=== PATIENT | female | born 1970 | race Caucasian/White ===

== ENCOUNTER 2023-07-17 08:32 | Inpatient (IN) ==
--- NOTE | 2023-07-02 14:32 | PAT Medication Instructions ---
Medication Instructions Date of Service July 02, 2023 Home Medications atorvastatin 20 mg tablet 20 mg PO HS bupropion HCl 150 mg tablet,12 hr sustained-release (Wellbutrin SR) 150 mg PO QAM cholecalciferol (vitamin D3) 50 mcg (2,000 unit) tablet (Vitamin D3) 50 mcg PO HS cyanocobalamin (vitamin B-12) 500 mcg tablet (Vitamin B-12) 500 mcg PO QAM cyclobenzaprine 10 mg tablet 10 mg PO TID PRN Muscle Spasm ferrous sulfate 325 mg (65 mg iron) tablet (Iron (ferrous sulfate)) 325 mg PO HS gabapentin 100 mg capsule (Neurontin) 200 mg PO TID leflunomide 20 mg tablet 20 mg PO HS lithium carbonate 150 mg capsule 150 mg PO QAM lithium carbonate 300 mg tablet 300 mg PO HS methylphenidate HCl 36 mg tablet,extended release 24 hr (Concerta) 36 mg PO QAM metoprolol tartrate 100 mg tablet 100 mg PO QAM omeprazole 20 mg tablet,delayed release 20 mg PO HS oxycodone-acetaminophen 5 mg-325 mg tablet (Percocet) 1 tab PO BID PRN Pain ASK your prescriber and surgeon leflunomide 20 mg tablet 20 mg PO HS DO NOT take the morning of surgery cyanocobalamin (vitamin B-12) 500 mcg tablet (Vitamin B-12) 500 mcg PO QAM cyclobenzaprine 10 mg tablet 10 mg PO TID PRN Muscle Spasm methylphenidate HCl 36 mg tablet,extended release 24 hr (Concerta) 36 mg PO QAM Take morning of surgery With a small sip of water, OTHERWISE NOTHING TO EAT OR DRINK AFTER MIDNIGHT: bupropion HCl 150 mg tablet,12 hr sustained-release (Wellbutrin SR) 150 mg PO QAM gabapentin 100 mg capsule (Neurontin) 200 mg PO TID lithium carbonate 150 mg capsule 150 mg PO QAM metoprolol tartrate 100 mg tablet 100 mg PO QAM oxycodone-acetaminophen 5 mg-325 mg tablet (Percocet) 1 tab PO BID PRN Pain (if needed) Take evening before surgery atorvastatin 20 mg tablet 20 mg PO HS cholecalciferol (vitamin D3) 50 mcg (2,000 unit) tablet (Vitamin D3) 50 mcg PO HS cyclobenzaprine 10 mg tablet 10 mg PO TID PRN Muscle Spasm (if needed) ferrous sulfate 325 mg (65 mg iron) tablet (Iron (ferrous sulfate)) 325 mg PO HS gabapentin 100 mg capsule (Neurontin) 200 mg PO TID leflunomide 20 mg tablet 20 mg PO HS lithium carbonate 300 mg tablet 300 mg PO HS omeprazole 20 mg tablet,delayed release 20 mg PO HS oxycodone-acetaminophen 5 mg-325 mg tablet (Percocet) 1 tab PO BID PRN Pain (if needed) Other Notes If you have any questions please call us at [phone] or [phone] or [phone] or [phone]
--- NOTE | 2023-07-08 09:44 | Anesthesiology Consultation ---
Date of Service July 08, 2023 Assessment & Plan (1) Encounter for pre-operative examination: - Check test AM DOS - Infectious disease screening: Per assessment on 07/08: No known infectious disease contacts or current infectious disease symptoms. Chart Review Chart Review: Acceptable Risk for Surgery and Patient NOT seen in Pre Admission Testing History Surgery Operation Date: 07/17/23 07:45 Proposed Procedures p L2-L4 Decompression, L2-S1 Fusion, L4-S1 Hardware Removal, Spinal Cord Monitoring - Pacheco Sutherland, Height/Weight Height: 5 ft 7 in Weight: 84.4 kg Allergies Allergy/AdvReac Type Severity Reaction Status Date / Time No Known Allergies Allergy Verified 07/02/23 13:37 Medications Home Medications Medication Instructions Recorded Confirmed Last Taken atorvastatin 20 mg tablet 20 mg PO HS 07/02/23 07/02/23 Unknown bupropion HCl 150 mg tablet,12 hr 150 mg PO QAM 07/02/23 07/02/23 Unknown sustained-release (Wellbutrin SR) cholecalciferol (vitamin D3) 50 50 mcg PO HS 07/02/23 07/02/23 Unknown mcg (2,000 unit) tablet (Vitamin D3) cyanocobalamin (vitamin B-12) 500 500 mcg PO QAM 07/02/23 07/02/23 Unknown mcg tablet (Vitamin B-12) cyclobenzaprine 10 mg tablet 10 mg PO TID PRN Muscle Spasm 07/02/23 07/02/23 Unknown ferrous sulfate 325 mg (65 mg 325 mg PO HS 07/02/23 07/02/23 Unknown iron) tablet (Iron (ferrous sulfate)) gabapentin 100 mg capsule 200 mg PO TID 07/02/23 07/02/23 Unknown (Neurontin) leflunomide 20 mg tablet 20 mg PO HS 07/02/23 07/02/23 Unknown lithium carbonate 150 mg capsule 150 mg PO QAM 07/02/23 07/02/23 Unknown lithium carbonate 300 mg tablet 300 mg PO HS 07/02/23 07/02/23 Unknown methylphenidate HCl 36 mg 36 mg PO QAM 07/02/23 07/02/23 Unknown tablet,extended release 24 hr (Concerta) metoprolol tartrate 100 mg tablet 100 mg PO QAM 07/02/23 07/02/23 Unknown omeprazole 20 mg tablet,delayed 20 mg PO HS 07/02/23 07/02/23 Unknown release oxycodone-acetaminophen 5 mg-325 1 tab PO BID PRN Pain 07/02/23 07/02/23 Unknown mg tablet (Percocet) Past Medical History Medical History Bipolar disorder GERD (gastroesophageal reflux disease) History of anemia Hx of blood transfusions (most recent 5+ years ago), improved with iron supplementation History of COVID-19 2020- bradycardia, SOB, flu-like symptoms- evaluated in the ER/no hospitalization, states had endocarditis caused by Covid; "resolved" History of endocarditis After having Covid 2019, "resolved" History of kidney stones Hyperlipidemia Migraine Reason for metoprolol per patient Rheumatoid arthritis Exercise / Class Metabolic Activity III < 4 Walking/Shop/Light housework (one FS (no CP, + occasional SOB)) Past Family History Family History Other No family history of adverse response to anesthesia Past Surgical History Surgical History History of ankle surgery History of bilateral carpal tunnel release History of bilateral hip replacements 2021 History of esophageal dilatation History of lumbar fusion Hx of cholecystectomy Hx of cystoscopy Hx of gastric bypass Hx of hand surgery nodules removed from tendons Hx of unilateral oophorectomy right Past Anesthesia History No Hx of Anesthesia Complications Mother- slow to wake, PONV, "sensitive to meds" History of PONV History of PONV (+ postop nausea) Social History Smoking Status: Never smoker Do You Dip or Chew Tobacco: No Hx Alcohol Use: Yes alcohol intake frequency: holidays/special occasions only Hx Substance Use: No substance use type: does not use Review of Systems Patient denies chest pain, shortness of breath, fever, chills, cough, wheezing, palpitations. Physical Exam Vital Signs VITALS BP 137/85 P 70 TEMP 99.0 SP02 96%RA RESP 16 PHYSICAL Full cervical extension range of motion. Full TMJ range of motion. TMD 4 finger breaths Mallampati Score 1 Dentition: missing side, + upper front crowns, + caps Lungs: clear throughout to auscultation Cardiac: regular rate and rhythm, no murmurs noted Spine: normal Carotid arteries: negative bruit Extremities: no LE edema Lab Results Anesthesia Preop Results Results Anesthesia Widget: WBC 5.65 K/ul (4.8-10.8) 07/08/23 Hgb 13.7 g/dl (12.0-16.0) 07/08/23 Hct 40.6 % (37.0-47.0) 07/08/23 Plt 206 K/uL (130-400) 07/08/23 Na 140 mmol/L (136-145) 07/08/23 K 4.3 mmol/L (3.5-5.1) 07/08/23 Cl 110 mmol/L (98-107) H 07/08/23 CO2 25 mmol/L (21-32) 07/08/23 BUN 16 mg/dl (6-23) 07/08/23 Creat 0.91 mg/dl (0.6-1.2) 07/08/23 Glucose Level 82 mg/dl (70-99(Fasting)) 07/08/23 PT 10.7 Seconds (9.0-12.0) 07/08/23 PTT 25.9 Seconds (21.0-31.0) 07/08/23 INR 1.0 (0.9-1.1) 07/08/23 Urine Color Dark Yellow 07/08/23 Urine Appearance Clear (Clear) 07/08/23 Urine pH 5.5 (4.5-7.5) 07/08/23 Urine Specific [place] 1.025 (1.000-1.030) 07/08/23 Urine Protein Negative (Negative) 07/08/23 Urine Glucose (UA) Negative (Negative) 07/08/23 Urine Ketones Trace (Negative) H 07/08/23 Urine Blood Negative (Negative) 07/08/23 Urine Nitrite Negative (Negative) 07/08/23 Urine Bilirubin Negative (Negative) 07/08/23 Urine Urobilinogen Negative (Negative) 07/08/23 Urine Leukocyte Esterase Trace (Negative) H 07/08/23 Urine WBC (Auto) 1-5 /hpf (0-5) 07/08/23 Urine RBC (Auto) 0-4 /hpf (0-4) 07/08/23 Urine Hyaline Casts (Auto) 1-5 /lpf (0-5) 07/08/23 Urine Epithelial Cells (Auto) >30 /lpf (0-5) H 07/08/23 Urine Bacteria (Auto) Negative (Negative) 07/08/23 Blood Type AB Negative 07/08/23 Antibody Screen NEGATIVE 07/08/23 Testing Electrocardiogram Date: 07/08/23 NSR at 65bpm. Chest X-Ray Date: 07/08/23 FINDINGS: No lines and tubes are seen. The cardiomediastinal silhouette is normal. The lungs are clear. No evidence of pleural effusion or pneumothorax. IMPRESSION: No acute abnormalities and in particular no radiographic evidence of pneumonia. Cervical Spine Date: 07/08/23 FINDINGS: Lateral views of the cervical spine in neutral, flexion, and extension positions are obtained. No prior studies are available for comparison at the time of dictation. The skeletal structures are osteopenic. There is no radiographic evidence of fracture or subluxation on these lateral views. Vertebral body height and alignment are maintained. The atlantodens articulation is maintained noting productive degenerative change. There is no bony subluxation on the flexion/extension views. The spinolaminar line is intact. The spinous processes are maintained. Anterior osteophytes are seen throughout. There is moderate disc space narrowing at C5-C6 with associated endplate sclerosis. The remaining disc spaces are preserved. The prevertebral soft tissues are normal as imaged. IMPRESSION: No acute bony abnormality is seen involving the cervical spine on these lateral views. There is no bony subluxation seen on the flexion/extension views. Spondylotic change as above.
[~2023-07-17 08:32] MED LIST: ACETAMINOPHEN 500 MG TAB PO SCH; CeleBREX 200 MG CAP PO SCH; DEXAMETHASONE SOD INJ 4 MG/ML VIAL ONE; GABAPENTIN 900 MG DOSE PO SCH; KETAMINE 50 MG/5 ML SYRINGE ONE; LIDOCAINE 2% 2 ML VIAL/AMP(20MG/ML) INFIL ONE; LR 15ML/HR IV SCH; LR 60ML/HR IV SCH; MIDAZOLAM HCL 1 MG/ML 2ML VIAL ONE; ONDANSETRON INJ 2 MG/ML 2 ML VIAL ONE; PROPOFOL IV EMULSION 10 MG/ML 20 ML VIAL IV ONE; ROCURONIUM BROMIDE 10 MG/ML 5 ML VIAL IV ONE; SUGAMMADEX SODIUM 200 MG/2 ML VIAL IV ONE; ceFAZolin 2000MG 2,000 MG/15 ML SYR IV SCH; fentaNYL citrate PF 100 MCG/2 ML VIAL ONE
[2023-07-17] MEDS ORDERED: SCOPOLAMINE 1 MG TDSY TD ONE ×2 (10:01→10:03)
[2023-07-17] MEDS ORDERED: ePHEDrine sulfate 50 MG/ML AMP IV PRN (10:03)
[2023-07-17] MEDS ORDERED: ONDANSETRON INJ 2 MG/ML 2 ML VIAL IV PRN ×2 (10:03→14:30)
[2023-07-17] MEDS ORDERED: ATROPINE SULFATE 0.1 MG/ML 10ML SYR IV PRN (10:03)
--- NOTE | 2023-07-17 10:04 | History & Physical Bridge Note ---
Date of Service July 17, 2023 History & Physical Bridge Note I have examined the patient, reviewed the History & Physical and in the interval since the performance of the History & Physical I have noted the following changes of clinical significance: no changes noted
--- NOTE | 2023-07-17 10:05 | History & Physical Report ---
Date of Service July 17, 2023 Assessment & Plan (1) Neurogenic claudication due to lumbar spinal stenosis: Plan: L2-L4 decompression, L2-S1 fusion, L4-S1 hardware removal History of Present Illness Chief Complaint: Back and leg pain Primary Care Provider: Bruna Worley MD This is a 53-year-old female presents with chronic persistent back and leg pain after failing course of nonoperative care she is here for surgical invention. Allergies Allergy/AdvReac Type Severity Reaction Status Date / Time No Known Allergies Allergy Verified 07/17/23 09:13 Home Medications Medication Instructions Recorded Confirmed Type atorvastatin 20 mg tablet 20 mg PO HS 07/02/23 07/17/23 History bupropion HCl 150 mg tablet,12 hr 150 mg PO QAM 07/02/23 07/17/23 History sustained-release (Wellbutrin SR) cholecalciferol (vitamin D3) 50 50 mcg PO HS 07/02/23 07/17/23 History mcg (2,000 unit) tablet (Vitamin D3) cyanocobalamin (vitamin B-12) 500 500 mcg PO QAM 07/02/23 07/17/23 History mcg tablet (Vitamin B-12) cyclobenzaprine 10 mg tablet 10 mg PO TID PRN Muscle Spasm 07/02/23 07/17/23 History ferrous sulfate 325 mg (65 mg 325 mg PO HS 07/02/23 07/17/23 History iron) tablet (Iron (ferrous sulfate)) gabapentin 100 mg capsule 200 mg PO TID 07/02/23 07/17/23 History (Neurontin) leflunomide 20 mg tablet 20 mg PO HS 07/02/23 07/17/23 History lithium carbonate 150 mg capsule 150 mg PO QAM 07/02/23 07/17/23 History lithium carbonate 300 mg tablet 300 mg PO HS 07/02/23 07/17/23 History methylphenidate HCl 36 mg 36 mg PO QAM 07/02/23 07/17/23 History tablet,extended release 24 hr (Concerta) metoprolol tartrate 100 mg tablet 100 mg PO QAM 07/02/23 07/17/23 History omeprazole 20 mg tablet,delayed 20 mg PO HS 07/02/23 07/17/23 History release oxycodone-acetaminophen 5 mg-325 1 tab PO BID PRN Pain 07/02/23 07/17/23 History mg tablet (Percocet) Past Med/Surg History Medical History Bipolar disorder GERD (gastroesophageal reflux disease) History of anemia Hx of blood transfusions (most recent 5+ years ago), improved with iron supplementation History of COVID-2020- bradycardia, SOB, flu-like symptoms- evaluated in the ER/no hospitalization, states had endocarditis caused by Covid; "resolved" History of endocarditis After having Covid 2019, "resolved" History of kidney stones Hyperlipidemia Migraine Reason for metoprolol per patient Rheumatoid arthritis Surgical History History of ankle surgery History of bilateral carpal tunnel release History of bilateral hip replacements 2021 History of esophageal dilatation History of lumbar fusion Hx of cholecystectomy Hx of cystoscopy Hx of gastric bypass Hx of hand surgery nodules removed from tendons Hx of unilateral oophorectomy right Family History Other No family history of adverse response to anesthesia Social History Smoking Status: Never smoker Second Hand Exposure: No; Do You Dip or Chew Tobacco: No; Tobacco Cessation Education Requested by Patient: No Hx Alcohol Use: Yes Hx Substance Use: No Preferred Language: Hungarian Communication Ability: Effective Hospital Attendant Required: No Beliefs That Will Affect Care: None Current Living Situation: Family Current Living Situation Comment: 12 yr old daughter Other Information That Helps Us Care for You: No Feels Safe at Home: Yes Safety Concerns: Feels Safe At This Time Assistive Devices: Glasses Physical Exam Physical Exam: Patient is alert and oriented Heart regular rhythm Lungs clear Results & Data Results & Data Vital Signs (Past 12 Hours) Vital Signs Temp Pulse Resp BP Pulse Ox O2 Del Method 07/17/23 09:17 36.9 C 85 16 175/103 H 94 Room Air
[2023-07-17] MEDS ORDERED: BUPIVACAINE/EPINEPHRINE 0.25% 1:200,000 30 ML VIAL ONE (10:30)
[2023-07-17] MEDS ORDERED: ceFAZolin 330 MG/ML 1 GM VIAL ONE (10:30)
[2023-07-17] MEDS ORDERED: ROCURONIUM BROMIDE 10 MG/ML 5 ML VIAL IV ONE ×4 (11:06)
[2023-07-17] MEDS ORDERED: fentaNYL citrate PF 100 MCG/2 ML VIAL ONE (11:17)
[2023-07-17] MEDS ORDERED: PHENYLEPHRINE 100MCG/ML 5ML SYR ONE (11:26)
[2023-07-17] MEDS ORDERED: ePHEDrine sulfate 50 MG/5 ML SYR ONE (11:26)
[2023-07-17] MEDS ORDERED: FLOSEAL HEMOSTATIC MATRIX 10ML TOP ONE (11:43)
--- NOTE | 2023-07-17 12:45 | Operative Report ---
Post Operative Report Pre & Post Diagnosis Operation Date: 07/17/23 10:15 Pre-Op Diagnosis: Neurogenic claudication due to lumbar spinal stenosis Post-Op Diagnosis: Neurogenic claudication due to lumbar spinal stenosis I identified the patient and participated in the time-out.: Yes Procedure Operation Date: 07/17/23 10:15 Actual Procedures #1 removal of posterior instrumentation L4-S1. #2 exploration of fusion L4-S1. #3 lumbar decompression bilaterally with facetectomies and foraminotomies L2-L3 L3-4 . #4 posterior spinal fusion L2-L3 L3-L4. #5 placed posterior instrumentation L2-S1. #6 interbody fusion L2-L3 L3-L4. #7 placement spiral of left by 26 mm at L2-L3 and 13 x 26 mm and L3-L4. #8 placement locally harvested morselized autograft and posterior gutters. #9 placement of I factor in the interbody space and infuse collagen sponge, mass graft in the posterior lateral gutters. Surgeon Pacheco Sutherland DO Chief Underwriter Elina Resendiz Estimated Blood Loss 150 Findings Consistent with Post-Op Diagnosis Specimens None Indications This is a 53-year-old female who presents above-mentioned diagnosis after failing course of nonoperative care is here for surgical invention. Description of Procedure Patient met with identified informed consent obtained. Patient was then taken to the operative suite underwent patient placed in a prone position on the Evangelist abdominals and frame. A bony promises well-padded I suspected to ensure no external pressure responded. This point the lumbar spine was prepped and draped in sterile fashion. Sharp dissection with the assistance of Bovie cautery form down to exposing the lamina and transverse processes of L2-4 including instrumentation L4 to the sacrum bilaterally. Then proceeded to move the hardware bilaterally explored the fusion mass noted and maternal tach. And then performed a complete laminectomy of L3 and L2 including bilateral medial facetectomies and foraminotomies addressing severe spinal stenosis. Pedicle screws were then placed in L2-L3-L4 and S1 levels bilaterally with assistance of fluoroscopy and the properly sized oliver placed. Believe transfer and proximal right complete discectomy L3-4 was performed endplates guarded to subcortical mean bone in the 13 x 26 mm prior cage with I factor tapped in position. Then proceeded L2-L3 and again by way of transfer approach right complete discectomy performed endplates guarded to subcortical bone and 11 x 26 mm prior cage with I factor tapped position. The rods were then locked femoral position bilaterally. The transverse processes of L2-L3-L4 burred to subcortical bleeding bone. Infuse collagen sponge, mass graft locally harvested morselized was placed in the posterior gutters. 15 round JESIKA inserted. The incision was then closed with 1 Fascia 2-0 Vicryl subcutaneously and 4 Monocryl for final closure. Steri- Strips sterile dressing placed. Patient waken taken PACU stable condition. Please note spinal cord monitoring was utilized at the procedure no changes noted. Lastly Elina Resendiz was present at the entire procedure involved in patient positioning complex portion of the surgeon fashion closure. I attest to the content of the Intraoperative Record and any orders documented therein. Any exceptions are noted below.
[2023-07-17] MEDS: fentaNYL citrate PF 100 MCG/2 ML VIAL IV PRN ×4 (13:15→13:38)
--- NOTE | 2023-07-17 13:40 | Fluoroscopy Report ---
FL lumbar spine 2-3V CLINICAL HISTORY: L2-4 DECOMP L2-S1 FUSION L4-S1 HARWARE REMOVAL COMPARISON STUDY: Chest radiograph 07/08/2023 FLUOROSCOPY TIME: 22.0 seconds FLUOROSCOPY IMAGES: 2 EXPOSURE DOSE: 14.83 mGy FINDINGS: Incompletely imaged posterior interbody oliver and screw fusion hardware with discectomy miranda es are present, exact numbering is not definitive based on magnification of the images. The imaged bond rdware appears intact. No unexpected opaque foreign bodies. Note that the images were submitted follo wing completion of the surgery. IMPRESSION: Fluoroscopic assistance as above. ACT 112: Negative or not required by law. Electronically signed by: Rm Pritchett M.D. 07/17/2023 1:38 PM
[2023-07-17] MEDS: HYDROmorphone INJ 1 MG/ML SYRINGE IV PRN ×3 (13:43→13:53)
--- NOTE | 2023-07-17 13:55 | Anesthesiology Progress Note ---
Date of Service July 17, 2023 Anesthesia Post Procedure Vital Signs Vital Signs: Temp Pulse Pulse Resp BP Pulse Ox O2 Del Method 07/17/23 13:45 74 17 132/78 97 Nasal Cannula 07/17/23 13:35 81 19 128/72 100 Nasal Cannula 07/17/23 13:25 82 15 127/79 97 Oxymask 07/17/23 13:15 81 16 118/86 100 Oxymask 07/17/23 13:05 71 12 122/72 100 Oxymask 07/17/23 12:59 97.2 F L 74 10 L 110/68 98 Oxymask 07/17/23 09:17 98.4 F 85 16 175/103 H 94 Room Air O2 Flow Rate 07/17/23 13:45 2 07/17/23 13:35 2 07/17/23 13:25 4 07/17/23 13:15 8 07/17/23 13:05 8 07/17/23 12:59 8 07/17/23 09:17 Pain Intensity Bilateral Lower Back: Pain Intensity: 2 Back: Pain Intensity: 7 Transfer of Care Handoff Completed per policy Notes Mental Status: alert / awake / arousable and participated in evaluation Patient Amnestic to Procedure: Yes Nausea / Vomiting: adequately controlled Pain: adequately controlled Airway Patency, RR, SpO2: stable & adequate BP & HR: stable & adequate Hydration State: stable & adequate Anesthetic Complications: no major complications apparent and Pt Satisfied with anesthetic care
[2023-07-17] MEDS ORDERED: ACETAMINOPHEN 1,000 MG/100 ML VIAL IV PRN (14:30)
[2023-07-17] MEDS ORDERED: GABAPENTIN 100 MG CAP PO SCH (14:30)
[2023-07-17] MEDS ORDERED: MAGNESIUM HYDROXIDE SUSP 30 ML UDC PO PRN (14:30)
[2023-07-17] MEDS ORDERED: ALUMINUM/MAGNESIUM SUSP 30 ML UDC PO PRN (14:30)
[2023-07-17] MEDS ORDERED: DO NOT ADMINISTER PNEUMOCOCCAL VACCINE PRN (14:30)
[2023-07-17] MEDS ORDERED: bisacodyL 10 MG SUPP PR PRN (14:30)
[2023-07-17] MEDS ORDERED: FAMOTIDINE 20 MG TAB PO PRN (14:30)
[2023-07-17] MEDS ORDERED: hydrOXYzine HCl 25 MG TAB PO PRN (14:30)
[2023-07-17] MEDS ORDERED: diphenhydrAMINE Capsule 25 MG CAP PO PRN (14:30)
[2023-07-17] MEDS ORDERED: METOCLOPRAMIDE HCL INJ 5 MG/ML 2 ML VIAL IV PRN (14:30)
[2023-07-17] MEDS ORDERED: ONDANSETRON 4 MG OD TAB PO PRN (14:30)
[2023-07-17] MEDS ORDERED: DO NOT ADMINISTER FLU VACCINE PRN (14:30)
[2023-07-17] MEDS ORDERED: NALOXONE HCL 0.4 MG/1 ML VIAL/CARP IV PRN (14:30)
[2023-07-17] MEDS ORDERED: ACETAMINOPHEN 500 MG TAB PO PRN (14:30)
[2023-07-17] MEDS ORDERED: SOD PHOSPHATE/SOD BIPHOSPHATE ENEMA 132 ML BTL PR PRN (14:30)
[2023-07-17] MEDS ORDERED: PROMETHAZINE HCL 12.5 MG in SODIUM CHLORIDE 0.9% 50 ML IV PRN (14:30)
[2023-07-17] MEDS: LACTATED RINGER'S 1,000 ML IV SCH (14:49)
--- NOTE | 2023-07-17 14:56 | Hospitalist Consultation ---
Date of Consultation July 17, 2023 Assessment & Plan (1) Neurogenic claudication due to lumbar spinal stenosis: Pain/VTE/bowel management per primary orthopedic team Notably multiple medication changes due to pre-op medication list not consistent with external med list - current medications confirmed with patient and external med history - only discrepancy being Arava which the patient reports taking 20mg PO daily although prescription is for half a pill (ie. 10mg PO daily) - advised patient to confirm with her local government legislator regarding dosing on discharge. Continue gabapentin (2) Bipolar disorder: Continue lithium and wellbutrin (3) GERD (gastroesophageal reflux disease): Switch omeprazole to pantoprazole per hospital [facility] [place] (4) Migraine: Continue metoprolol succinate (pt takes for migraine prophylaxis per patient (5) Rheumatoid arthritis: Continue Arava (6) Hyperlipidemia: Continue atorvastatin History of Present Illness Reason for Consultation: medical management Attending Physician: Pacheco Sutherland, DO History of Present Illness Terri Finney is a 53 year old female POD#0 removal of posterior instrumentation, lumbar decompression and posterior spinal fusion performed by Dr Sutherland earlier today. Estimated blood loss 150ml. Feeling nauseous after the operation which is not unusual for her after operations. Otherwise feeling significant relief already from her radicular pain down both legs. 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 Allergies Allergy/AdvReac Type Severity Reaction Status Date / Time No Known Allergies Allergy Verified 07/17/23 09:13 Home Medications Medication Instructions Recorded Confirmed Type cholecalciferol (vitamin D3) 50 50 mcg PO HS 07/02/23 07/17/23 History mcg (2,000 unit) tablet (Vitamin D3) cyanocobalamin (vitamin B-12) 500 500 mcg PO QAM 07/02/23 07/17/23 History mcg tablet (Vitamin B-12) cyclobenzaprine 10 mg tablet 10 mg PO TID PRN Muscle Spasm 07/02/23 07/17/23 History ferrous sulfate 325 mg (65 mg 325 mg PO HS 07/02/23 07/17/23 History iron) tablet (Iron (ferrous sulfate)) leflunomide 20 mg tablet 20 mg PO HS 07/02/23 07/17/23 History lithium carbonate 150 mg capsule See Rx Instructions .Route .COMPLEX 07/02/23 07/17/23 History methylphenidate HCl 36 mg 36 mg PO QAM 07/02/23 07/17/23 History tablet,extended release 24 hr (Concerta) oxycodone-acetaminophen 5 mg-325 1 tab PO BID PRN Pain 07/02/23 07/17/23 History mg tablet (Percocet) atorvastatin 40 mg tablet 40 mg PO HS 07/17/23 07/17/23 History bupropion HCl 150 mg 24 hr tablet, 450 mg PO DAILY 07/17/23 07/17/23 History extended release gabapentin 300 mg capsule See Rx Instructions .Route .COMPLEX 07/17/23 07/17/23 History metoprolol succinate 25 mg 25 mg PO QAM 07/17/23 07/17/23 History tablet,extended release 24 hr omeprazole 40 mg capsule,delayed 40 mg PO HS 07/17/23 07/17/23 History release Patient History Medical History (Updated 07/17/23 @ 15:56 by Justin Amin MD) Bipolar disorder GERD (gastroesophageal reflux disease) History of anemia Hx of blood transfusions (most recent 5+ years ago), improved with iron supplementation History of COVID-19 2020- bradycardia, SOB, flu-like symptoms- evaluated in the ER/no hospitalization, states had endocarditis caused by Covid; "resolved" History of endocarditis After having Covid 2020, "resolved" History of kidney stones Hyperlipidemia Migraine Reason for metoprolol per patient Rheumatoid arthritis Surgical History History of ankle surgery History of bilateral carpal tunnel release History of bilateral hip replacements 2021 History of esophageal dilatation History of lumbar fusion Hx of cholecystectomy Hx of cystoscopy Hx of gastric bypass Hx of hand surgery nodules removed from tendons Hx of unilateral oophorectomy right Family History Other No family history of adverse response to anesthesia Social History Smoking Status: Never smoker Second Hand Exposure: No; Do You Dip or Chew Tobacco: No; Tobacco Cessation Education Requested by Patient: No Hx Alcohol Use: Yes Hx Substance Use: No Preferred Language: Japanese Communication Ability: Effective Cotton Buyer Required: No Beliefs That Will Affect Care: None Current Living Situation: Family Current Living Situation Comment: 12 yr old daughter Other Information That Helps Us Care for You: No Feels Safe at Home: Yes Safety Concerns: Feels Safe At This Time Assistive Devices: Glasses Review of Systems Review of Systems: All systems reviewed & are unremarkable except as noted in HPI & below Physical Exam Constitutional: WD/WN, vitals as above Eyes: + anicteric sclerae; normal pupil size Respiratory: normal respiratory effort, lungs clear to auscultation Cardiovascular: RRR, no murmur, no edema Gastrointestinal (Abdomen): normal bowel sounds, soft, nontender, no hepatosplenomegaly Psychiatric: A+Ox3, euthymic affect Results & Data Results & Data Vital Signs (Past 12 Hours) Vital Signs Temp Pulse Pulse Resp BP Pulse Ox O2 Del Method 07/17/23 14:51 84 16 122/76 96 Nasal Cannula 07/17/23 14:25 36.5 C 84 16 128/78 98 Nasal Cannula 07/17/23 14:05 36.6 C 81 15 138/84 99 Nasal Cannula 07/17/23 13:55 77 18 126/69 99 Nasal Cannula 07/17/23 13:45 74 17 132/78 97 Nasal Cannula 07/17/23 13:35 81 19 128/72 100 Nasal Cannula 07/17/23 13:25 82 15 127/79 97 Oxymask 07/17/23 13:15 81 16 118/86 100 Oxymask 07/17/23 13:05 71 12 122/72 100 Oxymask 07/17/23 12:59 36.2 C L 74 10 L 110/68 98 Oxymask 07/17/23 09:17 36.9 C 85 16 175/103 H 94 Room Air O2 Flow Rate 07/17/23 14:51 2 07/17/23 14:25 2 07/17/23 14:05 2 07/17/23 13:55 2 07/17/23 13:45 2 07/17/23 13:35 2 07/17/23 13:25 4 07/17/23 13:15 8 07/17/23 13:05 8 07/17/23 12:59 8 07/17/23 09:17 PG Care Time/CCT Total # of Minutes Spent Total Time Spent with Patient: Total time spent is greater than 50% in coordination of care (as documented) at patient's floor/unit and/or counseling patient: Coding Level of Care Code 75642 IN/OBS CONSULT LVL 4,60M Diagnoses Neurogenic claudication due to lumbar spinal stenosis M48.062 Bipolar disorder F31.9 GERD (gastroesophageal reflux disease) K21.9 Migraine G43.909 Rheumatoid arthritis M06.9 Hyperlipidemia E78.5
[2023-07-17] MEDS: LORazepam 2 MG/1 ML VIAL IV PRN (16:41)
[2023-07-17] MEDS: CHECK SCOPOLAMINE PATCH PLACEMENT SCH (16:42)
[2023-07-17] MEDS: ceFAZolin 2000MG 2,000 MG/15 ML SYR IV SCH (18:18)
[2023-07-17] MEDS: HYDROmorphone INJ 0.5 MG/0.5 ML SYR IV PRN (20:14)
[2023-07-17] MEDS: LITHIUM CARBONATE 300 MG TAB PO SCH (20:15)
[2023-07-17] MEDS: PANTOprazole 40 MG TAB PO SCH (20:15)
[2023-07-17] MEDS: CHOLECALCIFEROL 1,000 UNITS 25 MCG TAB PO SCH (20:17)
[2023-07-17] MEDS: FERROUS SULFATE 325 MG TAB PO SCH (20:17)
[2023-07-17] MEDS: ATORVASTATIN 40 MG TAB PO SCH (20:49)
[2023-07-17] MEDS: DOCUSATE SODIUM/SENNA 50/8.6MG TAB PO SCH (20:49)
[2023-07-17] MEDS: GABAPENTIN 300 MG CAP PO SCH (20:50)
[2023-07-17] MEDS ORDERED: ATORVASTATIN 20 MG TAB PO SCH (21:00)
[2023-07-17] MEDS ORDERED: PANTOprazole 40 MG TAB PO SCH (21:00)
[2023-07-17] MEDS: LEFLUNOMIDE 10 MG TAB PO SCH (22:07)
[2023-07-18] MEDS: HYDROmorphone INJ 1 MG/ML SYRINGE IV PRN (00:17)
[2023-07-18] MEDS: CHECK SCOPOLAMINE PATCH PLACEMENT SCH ×3 (00:18→16:52)
[2023-07-18] MEDS: LACTATED RINGER'S 1,000 ML IV SCH (01:52)
[2023-07-18] MEDS: oxyCODONE HCL IR 5 MG TAB (IMMEDIATE RELEASE) PO PRN ×3 (01:56→18:14)
[2023-07-18] MEDS: ceFAZolin 2000MG 2,000 MG/15 ML SYR IV SCH (03:11)
[2023-07-18] MEDS: POLYETHYLENE (MIRALAX) 17 GM PACK PO SCH ×3 (04:59→16:54)
[2023-07-18] MEDS: HYDROmorphone INJ 0.5 MG/0.5 ML SYR IV PRN ×3 (06:37→21:32)
[2023-07-18 06:40] LABS: Basophils # (auto) 0.01 K/uL (0.00-0.20); Basophils % (auto) 0.1 %; Eosinophils # (auto) 0.03 K/uL (0.00-0.50); Eosinophils % (auto) 0.3 %; Hematocrit (blood only) 33.1 % (37.0-47.0); Immature Granulocytes # (auto) 0.06 K/uL (0.01-0.20); Immature Granulocytes % (auto) 0.6 %; Lymphocytes % (auto) 9.6 %; Mean Corpuscular Hemoglobin 29.3 pg (25.0-34.0); Mean Corpuscular Hgb Conc 33.2 g/dL (32.0-36.0); Mean Corpuscular Volume 88.3 fL (80.0-100.0); Mean Platelet Volume 10.7 fL (9.4-12.4); Monocytes # (auto) 0.47 K/uL (0.11-0.59); Neutrophils # (auto) 7.95 K/uL (1.40-6.50); Neutrophils % (auto) 84.4 %; Platelet Count 151 K/uL (130-400); RDW Coefficient of Variation 12.7 % (11.5-14.5); RDW Standard Deviation 41.1 fL (36.4-46.3); Red Blood Count 3.75 M/uL (4.20-5.40); White Blood Count 9.42 K/ul (4.8-10.8)
[2023-07-18 06:59] LABS: Albumin Globulin Ratio 1.9 (0.9-2); Albumin Level 3.8 gm/dl (3.4-5.0); Bilirubin,Total 0.4 mg/dl (0.2-1.0); Calcium 8.7 mg/dl (8.6-10.3); Creatinine Clr Calc Pharmacy 97.7 ml/min; Est GFR (African American) 106.2 ml/min; Est GFR (Non-African American) 91.6 ml/min; Potassium 4.3 mmol/L (3.5-5.1); Total Protein 5.8 gm/dl (6.0-8.3)
[2023-07-18] MEDS: CYANOCOBALAMIN (B-12) 500 MCG TABLET PO SCH (07:39)
[2023-07-18] MEDS: METOPROLOL SUCC 25MG EXT REL TAB PO SCH (07:39)
[2023-07-18] MEDS: LITHIUM CARBONATE 300 MG TAB PO SCH ×2 (07:40→19:55)
[2023-07-18] MEDS: dexAMETHasone 6 MG in SYRINGE 0 ML IV SCH (07:41)
[2023-07-18] MEDS: LORazepam 0.5 MG TAB PO PRN (08:06)
--- NOTE | 2023-07-18 08:35 | Orthopedic Progress Note ---
Date of Service July 18, 2023 Assessment & Plan (1) Neurogenic claudication due to lumbar spinal stenosis: Plan: This time initiate physical therapy monitor JESIKA output of the discharge home in the next few days. Admission and Anticipated Discharge Date Admission Date: July 17, 2023 Subjective Patient's back pain is controlled leg pain markedly improved Physical Exam Physical Exam: Patient is in the chair at the bedside. She is comfortable. Is concerned to testing. Results & Data Vital Signs (Past 12 Hours) Vital Signs Temp Pulse Resp BP Pulse Ox O2 Del Method 07/18/23 07:00 36.7 C 73 18 119/81 100 Room Air 07/18/23 04:06 36.6 C 60 18 115/73 96 Room Air 07/17/23 23:32 36.6 C 71 20 125/75 96 Room Air 07/17/23 23:40 Room Air
[2023-07-18] MEDS: METHYLPHENIDATE HCL 10 MG TABLET PO SCH ×3 (08:37→16:53)
[2023-07-18] MEDS: GABAPENTIN 300 MG CAP PO SCH ×2 (08:37→19:51)
[2023-07-18] MEDS: buPROPion XL 150 MG TABCR PO SCH (08:38)
[2023-07-18] MEDS ORDERED: buPROPion SR 150 MG TABCR PO SCH ×2 (09:00)
[2023-07-18] MEDS ORDERED: METOPROLOL TARTRATE 100 MG TAB PO SCH (09:00)
[2023-07-18] MEDS ORDERED: COUGH DROP (SUGAR FREE) LOZ 24 LOZ/1 BOX BUCCAL ONE (18:34)
[2023-07-18] MEDS ORDERED: COUGH DROP (SUGAR FREE) LOZ 24 LOZ/1 BOX BUCCAL PRN (18:49)
[2023-07-18] MEDS: DOCUSATE SODIUM/SENNA 50/8.6MG TAB PO SCH (19:52)
[2023-07-18] MEDS: PANTOprazole 40 MG TAB PO SCH (19:53)
[2023-07-18] MEDS: LEFLUNOMIDE 10 MG TAB PO SCH (19:54)
[2023-07-18] MEDS: ATORVASTATIN 40 MG TAB PO SCH (19:55)
[2023-07-18] MEDS: FERROUS SULFATE 325 MG TAB PO SCH (19:55)
[2023-07-18] MEDS: CHOLECALCIFEROL 1,000 UNITS 25 MCG TAB PO SCH (19:56)
--- NOTE | 2023-07-18 22:22 | Hospitalist Progress Note ---
Date of Service July 18, 2023 Assessment & Plan (1) Neurogenic claudication due to lumbar spinal stenosis: Plan: Pain/VTE/bowel management per primary orthopedic team Notably multiple medication changes due to pre-op medication list not consistent with external med list - current medications confirmed with patient and external med history - only discrepancy being Arava which the patient reports taking 20mg PO daily although prescription is for half a pill (ie. 10mg PO daily) - advised patient to confirm with her industrial equipment wirer regarding dosing on discharge. Continue gabapentin (2) Bipolar disorder: Plan: Continue lithium and wellbutrin Changed methylphenidate timing t 7, 11, 14 and increased to 15 mg PO TID. (3) GERD (gastroesophageal reflux disease): Plan: Switch omeprazole to pantoprazole per hospital [facility] (4) Migraine: Plan: Continue metoprolol succinate (pt takes for migraine prophylaxis per patient (5) Rheumatoid arthritis: Plan: Continue Arava (6) Hyperlipidemia: Plan: Continue atorvastatin Admission and Anticipated Discharge Date Admission Date: July 17, 2023 Subjective Patient is concerned about her concerta. Asking timing of her medications to be changed. Review of Systems Review of Systems: All systems reviewed & are unremarkable except as noted in HPI & below Physical Exam Physical Exam: Constitutional: WD/WN, vitals as above Eyes: + anicteric sclerae; normal pupil size Respiratory: normal respiratory effort, lungs clear to auscultation Cardiovascular: RRR, no murmur, no edema Gastrointestinal (Abdomen): normal bowel sounds, soft, nontender, no hepatosplenomegaly Psychiatric: A+Ox3, euthymic affect Results & Data Results & Data Vital Signs (Past 12 Hours) Vital Signs Temp Pulse Resp BP BP Pulse Ox O2 Del Method 07/18/23 20:00 Room Air 07/18/23 19:48 36.9 C 68 16 119/81 99 Room Air 07/18/23 15:36 36.9 C 75 16 119/81 96 Room Air PG Care Time/CCT Total # of Minutes Spent Total Time Spent with Patient: Total time spent is greater than 50% in coordination of care (as documented) at patient's floor/unit and/or counseling patient: Coding Level of Care Code 08518 SUB INP/OBS CARE 2/35MIN Diagnoses Neurogenic claudication due to lumbar spinal stenosis M48.062 Bipolar disorder F31.9 GERD (gastroesophageal reflux disease) K21.9 Migraine G43.909 Rheumatoid arthritis M06.9 Hyperlipidemia E78.5
[2023-07-19] MEDS: CHECK SCOPOLAMINE PATCH PLACEMENT SCH ×3 (01:06→16:25)
[2023-07-19] MEDS: oxyCODONE HCL IR 5 MG TAB (IMMEDIATE RELEASE) PO PRN ×2 (02:38→09:02)
[2023-07-19] MEDS: POLYETHYLENE (MIRALAX) 17 GM PACK PO SCH ×2 (02:39→06:41)
[2023-07-19] MEDS: METHYLPHENIDATE HCL 5 MG TABLET PO SCH ×3 (06:41→13:52)
[2023-07-19] MEDS: HYDROmorphone INJ 1 MG/ML SYRINGE IV PRN ×4 (06:41→21:36)
[2023-07-19] MEDS: LORazepam 0.5 MG TAB PO PRN ×2 (07:39→09:02)
[2023-07-19] MEDS: dexAMETHasone 6 MG in SYRINGE 0 ML IV SCH (09:02)
[2023-07-19] MEDS: LITHIUM CARBONATE 300 MG TAB PO SCH ×2 (09:03→20:43)
[2023-07-19] MEDS: CYANOCOBALAMIN (B-12) 500 MCG TABLET PO SCH (09:04)
[2023-07-19] MEDS: METOPROLOL SUCC 25MG EXT REL TAB PO SCH (09:04)
[2023-07-19] MEDS: buPROPion XL 150 MG TABCR PO SCH (09:04)
[2023-07-19] MEDS: GABAPENTIN 300 MG CAP PO SCH ×2 (09:04→20:42)
--- NOTE | 2023-07-19 10:08 | Orthopedic Progress Note ---
Date of Service July 19, 2023 Assessment & Plan (1) Neurogenic claudication due to lumbar spinal stenosis: Plan: At this time we will continue physical therapy monitor her JESIKA output anticipate discharge home tomorrow. Admission and Anticipated Discharge Date Admission Date: July 17, 2023 Subjective Patient struggling with back pain. Leg pain markedly improved. Physical Exam Physical Exam: Patient is currently in bed. She is strength testing. Results & Data Vital Signs (Past 12 Hours) Vital Signs Temp Pulse Resp BP Pulse Ox O2 Del Method 07/19/23 07:32 36.6 C 86 16 135/89 95 Room Air
[2023-07-19] MEDS: traMADol HCL 50 MG TABLET PO PRN ×2 (12:41→23:22)
[2023-07-19] MEDS: PANTOprazole 40 MG TAB PO SCH (20:42)
[2023-07-19] MEDS: ATORVASTATIN 40 MG TAB PO SCH (20:42)
[2023-07-19] MEDS: CHOLECALCIFEROL 1,000 UNITS 25 MCG TAB PO SCH (20:43)
[2023-07-19] MEDS: LEFLUNOMIDE 10 MG TAB PO SCH (20:43)
[2023-07-19] MEDS: FERROUS SULFATE 325 MG TAB PO SCH (20:43)
[2023-07-19] MEDS: DOCUSATE SODIUM/SENNA 50/8.6MG TAB PO SCH (20:43)
--- NOTE | 2023-07-19 22:17 | Hospitalist Progress Note ---
Date of Service July 19, 2023 Assessment & Plan (1) Neurogenic claudication due to lumbar spinal stenosis: Plan: Pain/VTE/bowel management per primary orthopedic team Notably multiple medication changes due to pre-op medication list not consistent with external med list - current medications confirmed with patient and external med history - only discrepancy being Arava which the patient reports taking 20mg PO daily although prescription is for half a pill (ie. 10mg PO daily) - advised patient to confirm with her perianesthesia nurse regarding dosing on discharge. Continue gabapentin Medicine will sign off (2) Bipolar disorder: Plan: Continue lithium and wellbutrin Changed methylphenidate timing t 7, 11, 14 and increased to 15 mg PO TID. (3) GERD (gastroesophageal reflux disease): Plan: Switch omeprazole to pantoprazole per hospital forilary (4) Migraine: Plan: Continue metoprolol succinate (pt takes for migraine prophylaxis per patient (5) Rheumatoid arthritis: Plan: Continue Arava (6) Hyperlipidemia: Plan: Continue atorvastatin Admission and Anticipated Discharge Date Admission Date: July 17, 2023 Subjective Patient reports no new symptoms. Review of Systems Review of Systems: All systems reviewed & are unremarkable except as noted in HPI & below Physical Exam Physical Exam: Constitutional: WD/WN, vitals as above Eyes: + anicteric sclerae; normal pupil size Respiratory: normal respiratory effort, lungs clear to auscultation Cardiovascular: RRR, no murmur, no edema Gastrointestinal (Abdomen): normal bowel sounds, soft, nontender, no hepatosplenomegaly Psychiatric: A+Ox3, euthymic affect Results & Data Results & Data Vital Signs (Past 12 Hours) Vital Signs Temp Pulse Resp BP Pulse Ox O2 Del Method 07/19/23 21:35 37 C 73 18 139/85 95 Room Air 07/19/23 20:36 72 132/85 07/19/23 15:56 36.6 C 73 16 151/91 H 98 Room Air PG Care Time/CCT Total # of Minutes Spent Total Time Spent with Patient: Total time spent is greater than 50% in coordination of care (as documented) at patient's floor/unit and/or counseling patient: Coding Level of Care Code 17775 SUB INP/OBS CARE 2/35MIN Diagnoses Neurogenic claudication due to lumbar spinal stenosis M48.062 Bipolar disorder F31.9 GERD (gastroesophageal reflux disease) K21.9 Migraine G43.909 Rheumatoid arthritis M06.9 Hyperlipidemia E78.5
[2023-07-20] MEDS: CHECK SCOPOLAMINE PATCH PLACEMENT SCH (01:04)
[2023-07-20] MEDS: LORazepam 2 MG/1 ML VIAL IV PRN (01:47)
[2023-07-20] MEDS: METHYLPHENIDATE HCL 5 MG TABLET PO SCH ×2 (06:21→12:59)
[2023-07-20] MEDS: HYDROmorphone INJ 0.5 MG/0.5 ML SYR IV PRN (07:48)
[2023-07-20] MEDS: CYANOCOBALAMIN (B-12) 500 MCG TABLET PO SCH (07:49)
[2023-07-20] MEDS: GABAPENTIN 300 MG CAP PO SCH (07:49)
[2023-07-20] MEDS: buPROPion XL 150 MG TABCR PO SCH (07:49)
[2023-07-20] MEDS: METOPROLOL SUCC 25MG EXT REL TAB PO SCH (07:49)
[2023-07-20] MEDS: LITHIUM CARBONATE 300 MG TAB PO SCH (07:49)
[2023-07-20] MEDS: dexAMETHasone 6 MG in SYRINGE 0 ML IV SCH (07:50)
--- NOTE | 2023-07-20 09:22 | Discharge Summary ---
Date of Service July 20, 2023 Admission HPI Per Admitting Provider This is a 53-year-old female presents with chronic persistent back and leg pain after failing course of nonoperative care she is here for surgical invention. Principal Diagnosis Lumbar spinal stenosis with neurogenic claudication Discharge Data Allergies Allergy/AdvReac Type Severity Reaction Status Date / Time No Known Allergies Allergy Verified 07/17/23 09:13 Consultations 07/17/23 14:30 Consult Hospitalist Routine Procedures Performed Operation Date: 07/17/23 10:15 Actual Procedures p L2-L4 Decompression, L2-S1 Fusion, L4-S1 Hardware Removal, Spinal Cord Monitoring(Not Applicable) - Pacheco Sutherland DO Ordered Studies 07/17/23 [place] lumbar spine 2-3V Routine Hospital Course (1) Neurogenic claudication due to lumbar spinal stenosis: Patient 1 lumbar decompression fusion tolerated as well as taken to orthopedic for postoperative. Postop day 1 she was up and ambulating breast postop day #2 on postop day #3 pain was well controlled. JESIKA drain decreasing probably. Excellent strength testing. Separately discharged home. Discharge orders instructions found in chart for further review. Total Time Total Time Spent Total Time Spent (In Minutes): 20 minutes Discharge Plan Discharge Items Patient Disposition: Home - Self-Care Reason For Visit: Spinal Stenosis, Lumbare Region without Neurogenic Discharge Diagnosis: Lumbar spinal stenosis with neurogenic claudication Activity: As commented below Non-emergency contact: Primary Care Provider Call non-emergency contact if: you have any medication questions Follow-up/Referrals: Bruna Worley MD [Primary Care Provider] - Diet: Regular Addtl Attending Provider Instructions: ACTIVITY RECOMMENDATIONS: SELF CARE INSTRUCTIONS AFTER THORACIC/LUMBAR FUSIONS 1. You may walk to your tolerance. It is good exercise for your legs and back. Expect some back and intermittent leg aches and pains. 2. You may perform "counter-top" level activities (make a sandwich, tho with a project, etc.). 3. No bending or lifting of more than 10 pounds or back twisting of any nature (roll like a log when turning in bed). 4. You may ride in a car for 20-30 minutes at a time. No driving until after your first visit with your doctor. 5. Frequent changes of position and restricting sitting to 30 minutes at a time will help limit the amount of back spasms and stiffness you may experience. 6. You may discontinue the use of ambulatory aids (cane, crutches, etc.) once your strength and confidence allow. 7. You may professor of public administration the shower and let water strike your incision when you arrive home at least once daily. Do not take a tub bath, sit in a hot tub or go into a swimming pool until after your first recheck in the office. SPECIAL CARE INSTRUCTIONS: VERY IMPORTANT TO READ AND REVIEW A. Your surgical incision has been closed with a cosmetic suture under the skin that will dissolve in about 6 weeks. In 14 days, you can use a pair of clean scissors and cut the suture that is left outside of the skin at the ends of your incision. 1. The small skin tapes can be removed 7 days after surgery if they have not fallen off by that point. 2. You may keep the wound open to air as much as possible to promote healing after post-op day number 5 unless told otherwise by your doctor. 3. If you think the wound looks like it is becoming infected (redness or worsening drainage) and/or you are experiencing fever, chill or worsening back pain and muscle spasms, contact the office so that we may evaluate you as soon as possible. B. Complications are uncommon, but please contact us if you have any signs or symptoms of: 1. wound infection (fever higher than 102.5 degrees F, redness, separation of wound, drainage, or increasing pain from the incision) 2. blood clots in legs (pain, swelling, redness and warmth in legs) 3. urinary tract infection (fever higher than 102.5 degrees F, burning upon urination or increased frequency of urination) 4. nerve problems (inability to walk on your toes or heels, numbness, loss of bowel or bladder control) 5. any other symptoms that concern you C. Please call the office at if you have any concerns or questions about your operation or recovery. D. No smoking! Smoking drastically decreases the chance of a solid fusion. E. Do not take any anti-inflammatory medications (Indocin, Advil, Motrin, Aspirin, Naprosyn, etc.) as these may inhibit the chance of a solid fusion. Tylenol is okay to take for pain. MANAGING PAIN AFTER SPINAL SURGERY 1. Narcotic medication is intended for short-term use and will be provided for surgical pain. Surgical pain usually lasts for a period of 4-6 weeks. Narcotic medication includes Percocet, Vicodin, Darvocet, Tylenol #3 or Lortab. 2. Longer-term pain is more appropriately treated with non-narcotic medication such as Tylenol ES. 3. Muscle spasm is not appropriately treated with narcotics. Muscle relaxers such as Soma, Flexeril or Skelaxin can be used along with Tylenol ES. 4. Remember that we all live with some "aches and pains". This is not unusual or uncommon after an injury or as we get older. a. Back pain is expected and may include muscle spasms for 4 to 6 weeks after surgery. The pain should gradually improve. If the pain worsens for no apparent reason, please contact the office. b. Intermittent leg pain may also be experienced and should not be concerned about unless it worsens for no apparent reason. If so, please contact the office. 5. We will provide appropriate medication within the normal guidelines of their prescribed use. We will also be very cautious and aware of potential abuse and extended duration of patients' medication needs. a. Pain medications are for your comfort and to assist with sleep and rest so that the tissue can heal. They are not provided in order to return to normal activity and should not be used through the day. To do so or worsening pain at night can result from ongoing tissue damage and development of tolerance to the prescribed medicine. 6. Please allow 2-3 days to process refills. Prescriptions will not be mailed but must be picked up at the office. FOLLOW UP VISIT: Keep your scheduled follow-up appointment. Any questions, please call the office at . Pending Studies at Discharge: No Stand-Alone Forms: [facility], Smoking Cessation Medications and DC Order Prescriptions: New tramadol 50 mg tablet 50 mg PO Q6H PRN (Reason: pain, moderate) Qty: 30 0RF oxycodone 5 mg tablet 5 mg PO Q6H PRN (Reason: pain) Qty: 30 0RF Continued lithium carbonate 150 mg Capsule See Rx Instructions .ROUTE .COMPLEX Rx Instructions: 1 capsule in morning and 2 capsules at night leflunomide 20 mg Tablet 20 mg PO HS cyanocobalamin (vitamin B-12) [Vitamin B-12] 500 mcg Tablet 500 mcg PO QAM ferrous sulfate [Iron (ferrous sulfate)] 325 mg (65 mg iron) Tablet 325 mg PO HS methylphenidate HCl [Concerta] 36 mg Tablet Extended Release 24hr 36 mg PO QAM cholecalciferol (vitamin D3) [Vitamin D3] 50 mcg (2,000 unit) Tablet 50 mcg PO HS cyclobenzaprine 10 mg Tablet 10 mg PO TID PRN (Reason: Muscle Spasm) oxycodone-acetaminophen [Percocet] 5-325 mg Tablet 1 tab PO BID PRN (Reason: Pain) metoprolol succinate 25 mg tablet extended release 24 hr 25 mg PO QAM omeprazole 40 mg capsule,delayed release(DR/EC) 40 mg PO HS gabapentin 300 mg capsule See Rx Instructions .ROUTE .COMPLEX Rx Instructions: take 2 capsules by mouth every morning and 3 at bedtime 18 bupropion HCl 150 mg tablet extended release 24 hr 450 mg PO DAILY atorvastatin 40 mg tablet 40 mg PO HS Discharge Orders: Discharge Order (Routine); Ordered 07/20/23 Ordered By: Pacheco Sutherland Admission Data Admit Date/Time: 07/17/23 12:48 Attending Provider: Pacheco Sutherland Admit Provider: Pacheco Sutherland Primary Care Provider: Bruna Worley Other Providers: Justin Amin
[2023-07-20] MEDS: oxyCODONE HCL IR 5 MG TAB (IMMEDIATE RELEASE) PO PRN (12:36)
== END 2023-07-20 14:45 | disposition home or self-care (01) | DRG 454 ==
LOC: ASU 08:32 → 3E 12:48